=== PATIENT | female | born 1940 | race Caucasian/White ===

== ENCOUNTER → 2019-02-12 | Outpatient (CLI) | payer MEDICARE ==
--- NOTE | 2019-02-12 13:11 | Diagnostic Imaging Report ---
EXAMINATION: Thyroid ultrasound. CLINICAL HISTORY: Thyroid nodule COMPARISON: None. . DISCUSSION: Transverse and longitudinal images of the thyroid were obtained utilizing grayscale and color Doppler modalities. The right thyroid lobe measures 4.4 x 1.2 x 1.8 cm and shows normal echogenicity. Nodules: Upper pole 1.5 x 0.7 x 1.3 cm, mixed cystic and solid, hypoechoic, wider than tall, smoothly marginated, punctate echogenic foci (TR 4) Upper pole 1.5 x 0.6 x 1.4 cm, solid, hypoechoic, wider than tall, smoothly marginated, no calcifications (TR 4) 4 mm coarse calcification medially The left thyroid lobe measures 3.6 x 0.8 x 1.5 cm and shows normal echogenicity. Nodules: Upper pole 0.9 x 0.5 x 0.5 cm, solid, hypoechoic, wider than tall, smoothly marginated, no calcifications (TR 4) Interpolar 0.6 x 0.3 x 0.4 cm, solid, hypoechoic, wider than tall, smoothly marginated, no calcifications (TR 4) The thyroid isthmus measures 0.3 cm and shows normal echogenicity. No nodules are seen. There is no adenopathy. IMPRESSION: Bilateral thyroid nodules as above. Fine-needle aspiration of the 2 dominant TR 4 right-sided nodules is suggested based on size criteria. Signed by: Dr. John Calvin M.D. on 02/12/2019 1:07 PM
== END ==
LOC: US 11:29
PROVIDERS: ATTEND Internal Medicine Medical Oncology
DX: E04.1 Nontoxic single thyroid nodule (principal)
CPT/HCPCS: 76536

== ENCOUNTER → 2022-02-05 | Outpatient (CLI) | payer MEDICARE ==
[~2022-02-05] MED LIST: ACETAMIN-CODE12.5 ML PO; ALLEGRA ALLERGY60 MG PO; ALPRAZOLAM0.25 M1 PO; ASPERCREME85 GM; ASPIRIN81 MG PO; CALCET TABLET1 EACH PO; DEXAMETHASONE4 MG PO; FOLIC ACID0.4 MG PO; GLUCOSAMIN-CHO1 EACH; LEVOCETIRIZINE D5 MG PO; MAGNESIUM OXID400 MG PO; MELATONIN3 MG PO; MULTI-VITAMIN1 EACH PO; ONDANSETRON ODT8 MG PO; PROTONIX20 MG PO; REVLIMID5 MG PO; SUDAFED 12 HOU120 MG PO; VALACYCLOVIR500 MG PO; VAPOR INHALER50 MG; ZOLPIDEM TARTRAT5 MG PO
== END ==
LOC: RAD 12:34
PROVIDERS: ATTEND Internal Medicine Cardiovascular Disease
DX: I11.0 Hypertensive heart disease with heart failure (principal); I49.5 Sick sinus syndrome; Z11.59 Encounter for screening for other viral diseases
CPT/HCPCS: 93306

== ENCOUNTER → 2022-02-10 | Day surgery (SDC) | payer MEDICARE ==
[2022-02-05 14:11] LABS: BASOPHILS # (AUTO) 0.1 (0.0-0.1); BASOPHILS % 0.9 % (0.0-1.0); EOSINOPHILS # (AUTO) 0.2 (0.0-0.4); EOSINOPHILS % 2.3 % (0.0-6.0); HEMATOCRIT 40.2 % (34.2-44.1); HEMOGLOBIN 12.9 g/dL (12.0-16.0); LYMPHOCYTES # (AUTO) 1.5 (1.0-3.2); LYMPHOCYTES % 24.1 % (18.0-39.1); MEAN CORPUSCULAR HEMOGLOBIN 31.2 pg (28-32); MEAN CORPUSCULAR HGB CONC 32.1 g/dL (31-35); MEAN CORPUSCULAR VOLUME 97.3 fL (81-99); MONOCYTES # (AUTO) 0.7 (0.2-0.8); MONOCYTES % 10.3 % (4.4-11.3); NEUTROPHILS % 62.1 % (38.7-80.0); PLATELET COUNT 135 x10e3/uL (140-360); RED BLOOD COUNT 4.13 x10e6/uL (3.6-5.1); RED CELL DISTRIBUTION WIDTH 13.7 % (11.7-14.4)
[2022-02-05 14:26] LABS: ANION GAP 14.9 mmol/L (8-16); CALCIUM 8.6 mg/dL (8.4-10.2); CREATININE, SERUM 1.2 mg/dL (0.57-1.11); POTASSIUM 4.9 mmol/L (3.5-5.1)
[~2022-02-10] VITALS: Ht 160 cm; Wt 56.7 kg
[2022-02-10] VITALS (11 sets, daily range): BP systolic 88–146; BP diastolic 52–85
[~2022-02-10] MED LIST changes: +FENTANYL CITRATE/PF 100MCG/2 ML INJ ONE; +HYDROCODONE/APAP 5MG-325MG TAB ONE; +LIDOCAINE 1% W/EPINEPHRINE 20 ML VIAL ONE; +SODIUM CHLORIDE 0.9% 1000ML 0 ML ONE; +SODIUM CHLORIDE 0.9% 1000ML 2,000 ML ONE; +Vancomycin IV 1 GM VIAL ONE
[2022-02-10 11:36] LABS: CHOL/HDL RATIO 3.4 (3.0-3.6)
== END | disposition home or self-care (01) ==
LOC: CATH LAB 10:41
PROVIDERS: ATTEND Internal Medicine Cardiovascular Disease
DX: I49.5 Sick sinus syndrome (principal); Z45.010 Encounter for checking and testing of cardiac pacemaker pulse generator [battery]; Z88.1 Allergy status to other antibiotic agents; Z88.3 Allergy status to other anti-infective agents; Z91.041 Radiographic dye allergy status; Z01.812 Encounter for preprocedural laboratory examination; Z01.818 Encounter for other preprocedural examination; Z20.822 Contact with and (suspected) exposure to COVID-19; Z79.82 Long term (current) use of aspirin; Z79.899 Other long term (current) drug therapy
CPT/HCPCS: 33228; 36415 ×2; 71046; 80048; 80061; 85025; C1785; J0690; J3010; J3370; J7030; U0002; 99152; 99153